=== PATIENT | male | born 1995 | race Caucasian/White ===

== ENCOUNTER 2016-06-18 12:23 | Emergency (ER) | payer SELFPAY ==
[2016-06-18 13:11] LABS: HEMOGLOBIN 15.8 gm/dl (14.0-17.5); RED BLOOD COUNT 5.4 M/UL (4.20-5.50); WHITE BLOOD COUNT 5.8 K/UL (4.5-11.0)
[2016-06-18 13:34] LABS: BUN/CREATININE RATIO 8 (0-10)
== END 2016-06-18 16:20 | disposition home or self-care (01) ==
LOC: ER1 12:23
PROVIDERS: Physician Assistant Medical
DX: R10.13 Epigastric pain (principal); R10.11 Right upper quadrant pain; R21 Rash and other nonspecific skin eruption; R94.5 Abnormal results of liver function studies; R11.2 Nausea with vomiting, unspecified
CPT/HCPCS: 36415; 80053; 81001; 82150; 83690; 85025; 99284; J7050; Q9962

== ENCOUNTER 2016-06-25 04:13 | Emergency (ER) | payer SELFPAY ==
[2016-06-25 06:46] LABS: HEMOGLOBIN 15.6 gm/dl (14.0-17.5); RED BLOOD COUNT 5.31 M/UL (4.20-5.50); WHITE BLOOD COUNT 11.9 K/UL (4.5-11.0)
[2016-06-25 07:06] LABS: BUN/CREATININE RATIO 15 (0-10)
== END 2016-06-25 09:50 | disposition home or self-care (01) ==
LOC: ER1 04:13
PROVIDERS: Physician Assistant
DX: R10.13 Epigastric pain (principal); R00.0 Tachycardia, unspecified; R11.2 Nausea with vomiting, unspecified
CPT/HCPCS: 36415; 80053; 80074; 81001; 83690; 85025; 87086; 96374; 96375; 99284; C9113; J2405; J7030; J7050; Q9962